=== PATIENT | female | born 2000 | race Caucasian/White ===

== ENCOUNTER 2019-06-06 22:18 | Emergency (ER) | payer OTHER ==
[~2019-06-06] VITALS: Ht 167.6 cm; Wt 65.0 kg
[~2019-06-06 22:18] MED LIST: AMOX1TAB10 PO; CEPH-443 PO; IBUP-1542 PO; IBUP800T48 PO; PHEN-538 PO; TRET15GE2 TOP; [UNRECOGNIZED DRUG - CODE] TP
[2019-06-06 22:21] VITALS: Ht 167.6 cm; Wt 65.0 kg
[2019-06-07 00:36] VITALS: BP 131/74; PULSE 75; RESP 18
== END 2019-06-07 00:37 | disposition home or self-care (01) ==
LOC: FTE 22:18
DX: G44.209 Tension-type headache, unspecified, not intractable (principal); H66.002 Acute suppurative otitis media without spontaneous rupture of ear drum, left ear; T16.1XXA Foreign body in right ear, initial encounter; X58.XXXA Exposure to other specified factors, initial encounter; Y92.9 Unspecified place or not applicable
CPT/HCPCS: 69200; Z7502